=== PATIENT | female | born 1985 | race Hispanic/Latino ===

== ENCOUNTER → 2019-08-07 | Day surgery (SDC) | payer OTHER ==
[~2019-08-07] MED LIST: Acetaminophen 500 MG TAB PO PRN; Ondansetron PF 4 MG/2 ML Vial IVP PRN; Prenatal Vitamin 1 TAB PO SCH; Promethazine HCl 25 MG/ML VIAL IM PRN; hydrALAZINE 20 MG/ML VIAL SLOW IVP PRN
[2019-08-07 19:03] LABS: Bilirubin Negative (Negative); Blood, Urine 1+ (Negative); Clarity Clear (Clear); Glucose, Urine (Dipstick) Normal (Negative); Leukocyte Negative Leu/uL (Negative); Nitrite Negative (Negative); Protein, Urine (Dipstick) Negative (Neg-Trace); Squamous Epithelial 0-3 HPF (0-3); Urobilinogen Normal mg/dL (Less than 2); WBC/HPF 0-3 HPF (0-3)
[2019-08-07 19:04] LABS: Bacteria/HPF 1+ HPF (None Seen)
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
[2019-08-07 19:30] LABS: #Basophils 0.1 thou/uL (0.0-0.2); #Lymphocytes 2.2 thou/uL (1.20-3.40); #Monocytes 0.7 thou/uL (0.11-0.59); %Basophils 0.5 % (0.0-1.0); %Eosinophils 0.4 % (0.0-10.0); %Lymphocytes 20.3 % (21.0-51.0); %Neutrophils 72.7 % (42.0-75.0); Hemoglobin 10.8 g/dL (12.0-16.0); Mean Corpuscular HGB CONC 32.5 g/dL (32.0-36.0); Mean Corpuscular Volume 76.9 fL (78.0-98.0); Mean Platelet Volume 10.9 fL (7.4-10.4); Platelet Count 192 thou/uL (130-400); White Blood Cell (WBC) Count 10.9 thou/uL (4.8-10.8)
[2019-08-07 19:53] LABS: ALT (SGPT) 52 U/L (8-55); AST (SGOT) 42 U/L (5-34); Albumin 3.1 g/dL (3.5-5.0); Alkaline Phosphatase 165 U/L (40-110); Anion Gap 15 mmol/L (10-20); BUN (Urea Nitrogen) 8 mg/dL (7.0-18.7); Bilirubin, Total 0.3 mg/dL (0.2-1.2); Calc. Creatinine Clearance 0 mL/min (70-130); Calcium 8.5 mg/dL (7.8-10.44); Carbon Dioxide 22 mmol/L (22-29); Chloride 105 mmol/L (98-107); Estimated GFR-MDRD Greater than 90; Glucose 74 mg/dL (70-105); Potassium 3.8 mmol/L (3.5-5.1); Protein, Total 7.1 g/dL (6.0-8.3); Sodium 138 mmol/L (136-145)
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
[2019-08-07 22:43] VITALS: BMI 45.0
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
[2019-08-08 14:12] VITALS: TEMP 98.5
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
== END | disposition home or self-care (01) ==
LOC: ERS 18:16 → L&D/OP 21:29 → ERS 21:29 → L&D/OP 21:53
PROVIDERS: ATTEND Obstetrics & Gynecology
DX: O99.89 Other specified diseases and conditions complicating pregnancy, childbirth and the puerperium (principal); R10.30 Lower abdominal pain, unspecified; R51 Headache; M54.5 Low back pain; O09.213 Supervision of pregnancy with history of pre-term labor, third trimester; Z3A.33 33 weeks gestation of pregnancy; V48.5XXA Car driver injured in noncollision transport accident in traffic accident, initial encounter; Z91.018 Allergy to other foods; Z91.030 Bee allergy status
CPT/HCPCS: 36415; 76815; 80053; 81003; 81015; 85025; 85384; 85460; 86900; 86901

== ENCOUNTER 2019-09-12 14:01 | Inpatient (IN) | payer OTHER ==
[~2019-09-12 14:01] MED LIST changes: -Acetaminophen 500 MG TAB PO PRN; +Bupivacaine 0.25% HCL 30 ML VIAL ONE; -Ondansetron PF 4 MG/2 ML Vial IVP PRN; -Prenatal Vitamin 1 TAB PO SCH; -Promethazine HCl 25 MG/ML VIAL IM PRN; -hydrALAZINE 20 MG/ML VIAL SLOW IVP PRN
[2019-09-12] MEDS ORDERED: hydrALAZINE 20 MG/ML VIAL SLOW IVP PRN ×3 (14:46→23:38)
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
[2019-09-12] MEDS ORDERED: NS / Oxytocin 40 units/1000ml 1,000 ML IV PRN (15:00)
[2019-09-12] MEDS ORDERED: Lidocaine 1% (PF) 30 ML VIAL SC PRN (15:00)
[2019-09-12] MEDS ORDERED: NS w/ Oxytocin 10 units 500 ML IV SCH (15:00)
[2019-09-12] MEDS ORDERED: Promethazine HCl 25 MG/ML VIAL IM PRN ×2 (15:01→19:48)
[2019-09-12] MEDS ORDERED: Ondansetron PF 4 MG/2 ML Vial IVP PRN ×3 (15:01→23:38)
[2019-09-12 15:28] VITALS: BMI 44.8
[2019-09-12 15:47] LABS: Hemoglobin 10.2 g/dL (12.0-16.0); Mean Corpuscular HGB CONC 33.1 g/dL (32.0-36.0); Mean Corpuscular Hemoglobin 25.1 pg (27.0-31.0); Mean Corpuscular Volume 75.8 fL (78.0-98.0); Mean Platelet Volume 11.3 fL (7.4-10.4); Platelet Count 175 thou/uL (130-400); RBC Distribution Width 15.3 % (11.5-14.5); Red Blood Cell (RBC) Count 4.05 mill/uL (4.20-5.40); White Blood Cell (WBC) Count 11.1 thou/uL (4.8-10.8)
[2019-09-12 16:52] LABS: HBSAg Index 0.18 S/CO (0-0.99); Hep B Surf Ag Non-Reactive S/CO (NonReactive)
[2019-09-12 18:03] LABS: Syphilis Antibody Nonreactive (Nonreactive); Syphilis Antibody Index 0.05 S/CO (<1.00 Non-Reactive)
[2019-09-12] MEDS ORDERED: Fentanyl 4 mcg/Bup 0.1% Cadd 100 ML ONE (19:10)
[2019-09-12] MEDS: Lactated Ringer's 1,000 ML IV SCH (19:17)
[2019-09-12] MEDS ORDERED: Naloxone HCl 0.4 mg/ml Vial IVP PRN ×2 (19:48)
[2019-09-12] MEDS ORDERED: diphenhydrAMINE 50 MG/ML VIAL IVP PRN (19:48)
[2019-09-12] MEDS ORDERED: Lactated Ringer's 500 ML IV PRN (19:48)
[2019-09-12] MEDS ORDERED: Acetaminophen 325 MG TAB PO PRN (19:48)
[2019-09-12] MEDS ORDERED: EPHEDRINE 25 MG/5 ML SYRINGE SLOW IVP PRN (19:48)
[2019-09-12] MEDS ORDERED: Fentanyl 4 mcg/Bupivacaine 0.1% Cassette 100 ML EPIDURAL SCH (20:00)
[2019-09-12] MEDS ORDERED: Communication Order-Pharmacy FS SCH (20:00)
[2019-09-12] MEDS ORDERED: Misoprostol 200 MCG TAB ONE (23:31)
[2019-09-12] MEDS ORDERED: Acetaminophen/Codeine 30-300mg Tablet PO PRN ×2 (23:38)
[2019-09-12] MEDS ORDERED: Preparation H Ointment 57 gram tube RC PRN (23:38)
[2019-09-12] MEDS ORDERED: Lanolin Ointment 7 GM TUBE TOP PRN (23:38)
[2019-09-12] MEDS ORDERED: Bisacodyl 10 MG SUPP PR PRN (23:38)
[2019-09-12] MEDS ORDERED: Milk Of Magnesia 30 ML UDCUP PO PRN (23:38)
[2019-09-12] MEDS ORDERED: diphenhydrAMINE 25 MG CAP PO PRN (23:38)
[2019-09-12] MEDS ORDERED: Zolpidem Tartrate 5 MG TAB PO PRN (23:38)
[2019-09-12] MEDS ORDERED: Misoprostol 200 MCG TAB VAG PRN (23:38)
[2019-09-12] MEDS ORDERED: Benzocaine-Menthol 82.5 ML CAN TOP PRN (23:38)
[2019-09-12] MEDS ORDERED: NS / Oxytocin 40 units/1000ml 1,000 ML IV SCH (23:45)
[2019-09-13] MEDS: Ibuprofen 800 MG TAB PO SCH ×3 (03:08→22:40)
[2019-09-13] MEDS ORDERED: Adacel (T-DAP) 0.5 ML SYRINGE IM ONE (09:00)
[2019-09-13] MEDS: Ferrous Sulfate 325 MG TAB PO SCH ×2 (09:24→16:41)
[2019-09-13] MEDS: Docusate Calcium (SURFAK) 240 MG CAP PO SCH ×2 (09:25→22:40)
[2019-09-13] MEDS: Prenatal Vitamin 1 TAB PO SCH (09:25)
[2019-09-13] MEDS: Lactated Ringer's 1,000 ML IV SCH (16:56)
[2019-09-14] MEDS: Ibuprofen 800 MG TAB PO SCH ×2 (06:34→09:46)
[2019-09-14 07:50] VITALS: BP 109/65; TEMP 98.5
[2019-09-14] MEDS: Ferrous Sulfate 325 MG TAB PO SCH (09:40)
[2019-09-14] MEDS: Prenatal Vitamin 1 TAB PO SCH (09:44)
[2019-09-14] MEDS: Docusate Calcium (SURFAK) 240 MG CAP PO SCH (09:44)
--- NOTE | 2019-09-14 11:00 | PDOC.PP ---
Post Progress Note Vital Signs (12 hours) Temp Pulse Resp BP Pulse Ox 09/14/19 07:50 98.5 F 76 20 109/65 100 Weight Weight 222 lb Result Diagrams: 09/12/19 15:34 Additional Labs: Post Labs Blood Type A POSITIVE 09/12/19 15:34 Hep Bs Antigen Non-Reactive S/CO (NonReactive) 09/12/19 15:34 - Assessment/Plan Chart check only. Patient ready to go home, PPD #2, seen yesterday by Dr. Roche. Rx. for Motrin 800mg called in to pharmacy.
== END 2019-09-14 13:20 | disposition home or self-care (01) | DRG 806 ==
LOC: L&D/OP 14:01 → L&D 19:26 → 3SW 09-13 02:51
PROVIDERS: ADMIT Obstetrics & Gynecology; ATTEND Obstetrics & Gynecology
PROC: 10E0XZZ Delivery of Products of Conception, External Approach (ICD-10-PCS; principal; 2019-09-12)
DX: O99.02 Anemia complicating childbirth (principal); D62 Acute posthemorrhagic anemia; Z37.0 Single live birth; Z3A.38 38 weeks gestation of pregnancy; Z91.030 Bee allergy status; Z91.018 Allergy to other foods
CPT/HCPCS: 51702; 85027; 86780; 86850; 86900; 86901; 87340; 99285; J2590; S0020

== ENCOUNTER 2024-09-04 13:41 | Outpatient (CLI) | payer BC | END 2024-09-04 13:42 | disposition home or self-care (01) | LOC: SCSRAD 13:41 | PROVIDERS: ATTEND Nurse Practitioner Family | DX: S99.922A Unspecified injury of left foot, initial encounter (principal) ==